=== PATIENT | male | born 1980 | race Caucasian/White ===

== ENCOUNTER 2018-11-27 00:19 | Emergency (ER) | payer MEDICAID ==
[2018-11-27 00:28] VITALS: BP 166/116; PULSE 118; O2SAT 98
--- NOTE | 2018-11-27 02:12 | ERPHSYRPT ---
- History of Present Illness Source: patient Exam Limitations: no limitations Patient Subjective Stated Complaint: PT STATES HE WAS PULLED OVER FOR SOMETHING BLOCKING HIS LICENSE PLATE AND WAS ARRESTED FOR DUI. PT STATES "I ONLY HAD A COUPLE BEERS, IT WASN'T TOO MANY" Triage Nursing Assessment: PINK/WARM/DRY, RESP EASY, A&OX4, STEADY GAIT, PT CALM AND COOPERATIVE, NO DISTRESS NOTED. Physician History: Pt is a 38 y/o male that presented to the ED for medical clearance, after he was stopped by the police, for DUI. Pt states, he was drinking about 4 beers today. Pt denies any other drug use, and denies any complains. Timing/Duration: today Allergies/Adverse Reactions: No Known Drug Allergies Allergy (Unverified 11/27/18 00:21) Home Medications: No Reportable Medications [No Reported Medications] 11/27/18 [History] Hx Tetanus, Diphtheria Vaccination/Date Given: No Hx Influenza Vaccination/Date Given: No Hx Pneumococcal Vaccination/Date Given: No Immunizations Up to Date: No - Review of Systems Constitutional: No Fever, No Chills Eyes: No Symptoms Ears, Nose, & Throat: No Symptoms Respiratory: No Cough, No Dyspnea Cardiac: No Chest Pain, No Edema, No Syncope Abdominal/Gastrointestinal: No Abdominal Pain, No Nausea, No Vomiting, No Diarrhea Genitourinary Symptoms: No Dysuria Musculoskeletal: No Back Pain, No Neck Pain Skin: No Rash Neurological: No Dizziness, No Focal Weakness, No Sensory Changes Psychological: No Symptoms Endocrine: No Symptoms All Other Systems: Reviewed and Negative - Past Medical History Pertinent Past Medical History: Yes Cardiac History: Hypertension - Past Surgical History Past Surgical History: Yes Musculoskeletal: Orthopedic Surgery Other Surgical History: LEFT LEG - Social History Smoking Status: Current every day smoker Exposure to second hand smoke: No Drug Use: none Patient Lives Alone: No - Nursing Vital Signs Nursing Vital Signs: Initial Vital Signs Temperature 98.9 F 11/27/18 00:21 Pulse Rate 118 H 11/27/18 00:21 Respiratory Rate 16 11/27/18 00:21 Blood Pressure 166/116 11/27/18 00:21 O2 Sat by Pulse Oximetry 98 11/27/18 00:21 - Physical Exam General Appearance: no apparent distress, alert Eye Exam: PERRL/EOMI, eyes nml inspection Ears, Nose, Throat Exam: normal ENT inspection, TMs normal, pharynx normal, moist mucous membranes Neck Exam: normal inspection, non-tender, supple, full range of motion Respiratory Exam: normal breath sounds, lungs clear, No respiratory distress Cardiovascular Exam: regular rate/rhythm, normal heart sounds, normal peripheral pulses Gastrointestinal/Abdomen Exam: soft, normal bowel sounds, No tenderness, No mass Back Exam: normal inspection, normal range of motion, No CVA tenderness, No vertebral tenderness Extremity Exam: normal inspection, normal range of motion, pelvis stable Neurologic Exam: alert, oriented x 3, cooperative, normal mood/affect, nml cerebellar function, nml station & gait, sensation nml, No motor deficits Skin Exam: normal color, warm, dry, No rash Lymphatic Exam: No adenopathy SpO2: 98 - Course Nursing assessment & vital signs reviewed: Yes Ordered Tests: Active Orders 24 hr Category Date Time Status ETHYL ALCOHOL Stat Lab 11/27/18 01:37 Completed Urine Triage Profile Stat Lab 11/27/18 00:55 Ordered Lab/Rad Data: Laboratory Results 11/27/18 Range/Units 01:37 Ethyl Alcohol 120 H (0-10) mg/dL - Progress Progress: unchanged Progress Note: 11/27/18 02:11 Pt was brought to the ED, and he had blood alcohol level that was elevated. Pt now, is cleared to d/c to police custody. - Departure Departure Disposition: [facility] Clinical Impression: Alcohol intoxication Condition: Stable Critical Care Time: No Referrals: DOCTOR,NO FAMILY [Primary Care Provider] -
== END 2018-11-27 02:28 | disposition home or self-care (01) ==
LOC: ED 00:19
DX: F10.129 Alcohol abuse with intoxication, unspecified (principal); Z02.89 Encounter for other administrative examinations
CPT/HCPCS: 36415; 80307; 99283; G0480